=== PATIENT | female | born 1955 | race Caucasian/White ===

== ENCOUNTER → 2025-01-24 09:34 | Outpatient (BNVA) | payer MEDICARE, OTHER, SELFPAY | PROVIDERS: PCP Family Medicine; Visit Provider Family Medicine | DX: Z13.6 Encounter for screening for cardiovascular disorders (principal); E03.9 Hypothyroidism, unspecified | CPT/HCPCS: 80053; 80061; 84439; 84443; 85025 ==

== ENCOUNTER 2025-01-30 15:33 | Emergency (ER) | payer MEDICARE, OTHER, SELFPAY ==
[2025-01-30 15:39] VITALS: BP 152/92; PULSE 102; RESP 17; TEMP 36.8; O2SAT 93; BMI 31.8
[2025-01-30] MEDS: tetanus-dipt-pertussis 0.5 mL SDV IM (16:08)
--- NOTE | 2025-01-30 16:40 | W.ED.WOUNDLC ---
HPI - Wound/Laceration General: Chief Complaint: Wound/Laceration Stated Complaint: left ring finger cut Time Seen by Provider: 01/30/25 15:48 Source: patient Mode of arrival: ambulatory Limitations: no limitations History of Present Illness: 69yo female presents with laceration of her left ring finger that occurred when she was in the kitchen using a knife. Patient reports that she has fibromyalgia and she has had increased shaking today. Patient is right-hand dominant. Denies any other injury or concern at this time. Associated symptoms: Denies chills, fever(s) or vomiting Related Data Home Medications ?Medication ?Instructions ?Recorded ?Confirmed duloxetine 60 mg capsule,delayed mg PO QDAY 01/24/25 01/24/25 release gabapentin 600 mg tablet mg PO BID 01/24/25 01/24/25 meloxicam 15 mg tablet mg PO QDAY 01/24/25 01/24/25 methocarbamol 750 mg tablet mg PO TID PRN 01/24/25 01/24/25 tramadol 50 mg tablet mg PO Q6H PRN 01/24/25 01/24/25 Previous Rx's ?Medication ?Instructions ?Recorded albuterol sulfate 90 mcg/actuation 2 puff inhalation Q6H PRN wheezing 12/26/24 aerosol inhaler (Ventolin HFA) #8.5 grams budesonide-formoterol HFA 80 2 puff inhalation BID #10.2 grams 01/24/25 mcg-4.5 mcg/actuation aerosol inhaler (Symbicort) lisinopril 5 mg tablet 5 mg PO QDAY #90 tabs 01/24/25 omeprazole 20 mg capsule,delayed 40 mg (2 x 20 mg) PO DAILY #120 01/24/25 release caps prednisone 20 mg tablet 40 mg (2 x 20 mg) PO DAILY 5 days 01/24/25 #10 tabs levothyroxine 100 mcg tablet 100 mcg PO QDAY #90 tabs 01/29/25 Allergies Allergy/AdvReac Type Severity Reaction Status Date / Time Sulfa (Sulfonamide Allergy ADR-Headach Verified 01/24/25 08:52 Antibiotics) e Review of Systems Const: Denies: fever(s), chills or body aches GI: Denies: vomiting Musc: Reports: other (Laceration left ring finger) Skin/Breast: Reports: other PFSH ED PFSH: Medical History (Updated 01/30/25 @ 16:42 by DERICK Pedersen) Hx of malignant neoplasm of colon Retained urethral stent Hernia Hypothyroidism Fibromyalgia Hypertension Asthma Surgical History (Updated 01/24/25 @ 09:12 by David Flores MD) H/O tubal ligation History of surgery on arm H/O colectomy Social History Smoking and tobacco/nicotine status: former use of tobacco/nicotine Alcohol intake: current Alcohol intake frequency: holidays/special occasions only Substance/Drug Use: never Physical Exam Const: COMMON NORMALS: no acute distress, patient oriented x3, healthy appearing and alert GENERAL APPEARANCE: cooperative ORIENTATION/CONSCIOUSNESS: Yes awake OTHER: Patient is ambulatory to vertical flow unassisted. She is sitting upright in the recliner in no acute distress. She is able to give history with no difficulty. She is interactive with exam appropriately. No family is at bedside HENMT: COMMON NORMALS: normocephalic and atraumatic HEAD & SCALP: normocephalic and atraumatic Neck/C-Spine: COMMON NORMALS: full ROM Chest: CHEST: Yes Symmetrical chest wall rise Resp: COMMON NORMALS: normal respiratory effort EFFORT & INSPECTION: Yes able to speak in complete sentences Extremity: RIGHT UPPER EXTREMITY: Yes hand & digits Right hand and digits: Yes inspection (Laceration left fourth digit. Bleeding controlled with pressure) and Yes ROM exam (Full range of motion with no difficulty) Neuro: COMMON NORMALS: patient oriented x3 SENSORIUM/ORIENTATION: Yes alert Psych: COMMON NORMALS: cooperative Procedures Laceration Laceration 1: Site: hand (left ring finger) Side (If applicable): left Size (cm): 1.5 Description: linear Depth: simple, single layer Local Anesthetic: lidocaine 1% Amount of anesthesia used (mL): 3 Pre-repair: wound explored and irrigated extensively Skin layer closed with: nylon Size (cm): 4-0 Number of sutures: 3 Technique: simple, interrupted Course Vital Signs: Vital signs: Vital Signs Temperature 98.2 F 01/30/25 15:39 Pulse Rate 102 H 01/30/25 15:39 Respiratory Rate 17 01/30/25 15:39 Blood Pressure 152/92 01/30/25 15:39 Pulse Oximetry 93 01/30/25 15:39 Oxygen Delivery Me thod Room Air 01/30/25 15:39 MDM - Wound/Laceration Medical Decision Making 69yo female presents with laceration of her left ring finger that occurred when she was in the kitchen using a knife. Patient is right-hand dominant. She denies any other injury or concern at this time. Patient is nontoxic in appearance. Vital signs are stable. Wound was copiously irrigated with normal saline. Laceration repaired with sutures. Discussed wound care. Advised follow-up with primary care/urgent care in 7 days for suture removal, sooner if needed. Return precautions provided. Patient states understanding and has no further questions or concerns at this time. No radiology studies performed this visit Discharge Plan Discharge Patient Disposition: Home Clinical Impression: Laceration of left ring finger Qualifiers: Encounter type: initial encounter Damage to nail status: without damage Foreign body presence: without foreign body Qualified Code(s): S61.215A - Laceration without foreign body of left ring finger without damage to nail, initial encounter Condition: Stable Prescriptions: No Action omeprazole 20 mg capsule,delayed release(DR/EC) 40 mg PO DAILY Qty: 120 1RF Rx Instructions: can take one or two capsules lisinopril 5 mg tablet 5 mg PO QDAY Qty: 90 1RF prednisone 20 mg tablet 40 mg PO DAILY 5 Days Qty: 10 0RF budesonide-formoterol [Symbicort] 80-4.5 mcg/actuation HFA aerosol inhaler 2 puff inhalation BID Qty: 10.2 1RF albuterol sulfate [Ventolin HFA] 90 mcg/actuation HFA aerosol inhaler 2 puff inhalation Q6H PRN (Reason: wheezing) Qty: 8.5 2RF duloxetine 60 mg capsule,delayed release(DR/EC) PO QDAY gabapentin 600 mg tablet PO BID meloxicam 15 mg tablet PO QDAY methocarbamol 750 mg tablet PO TID PRN tramadol 50 mg tablet PO Q6H PRN levothyroxine 100 mcg tablet 100 mcg PO QDAY Qty: 90 0RF Discharge Orders: Discharge ED (Routine); Ordered 01/30/25 Ordered By: Nacho Valdes Referrals: David Flores MD [Primary Care Provider, Family Practice] Discharge Diet: Usual diet Discharge Activity: Resume usual activity Patient Instructions: Finger Laceration (ED) Activity Restrictions/Additional Instructions: The laceration of the finger was repaired with sutures. Please do not submerge your finger under any water until the wound has healed Gently wash twice daily with soap and water. You may apply antibiotic ointment. The sutures will need to be removed in 7 to 10 days. You may follow-up with primary care or urgent care for suture removal Return to the emergency department if any further injury, rapid worsening symptoms, and as needed Print Language: Grenadian Coding Level of Care Code ED Cuff Turner Machine Operator for Sandra Gifford
== END 2025-01-30 17:16 | disposition home or self-care (01) ==
PROVIDERS: Emergency Provider Nurse Practitioner; PCP Family Medicine
DX: S61.215A Laceration without foreign body of left ring finger without damage to nail, initial encounter (principal); Z87.891 Personal history of nicotine dependence; I10 Essential (primary) hypertension; Z85.038 Personal history of other malignant neoplasm of large intestine; W26.0XXA Contact with knife, initial encounter
CPT/HCPCS: 12001; 90471; 90715; 99283; 99291; A6446

== ENCOUNTER 2025-03-10 13:48 | Outpatient (CLI) | payer MEDICARE, OTHER, SELFPAY ==
--- NOTE | 2025-03-10 13:20 | MM_ITS ---
WS: [id number] VIEWS: MLO and CC views both breasts. 3D digital tomosynthesis is also included in this exam. No prior studies. Findings: There are scattered areas of fibroglandular density. No sign of suspicious mass, tumor calcification or architectural distortion. MM/MM scr BI tomosynthesis [id number] Impression: BI-RADS: 2 - Benign. FOLLOW-UP: 1 Year Follow-up This mammogram was also analyzed by the Computer Aided Detection System [employer].
== END 2025-03-10 13:49 | disposition home or self-care (01) ==
LOC: RAD 13:49
PROVIDERS: PCP Family Medicine; Visit Provider Family Medicine
DX: Z12.31 Encounter for screening mammogram for malignant neoplasm of breast (principal); Z12.39 Encounter for other screening for malignant neoplasm of breast; R92.323 Mammographic fibroglandular density, bilateral breasts
CPT/HCPCS: 77063; 77067

== ENCOUNTER → 2025-05-28 09:21 | Outpatient (BNVA) | payer MEDICARE, OTHER, SELFPAY | PROVIDERS: PCP Family Medicine; Visit Provider Family Medicine | DX: I10 Essential (primary) hypertension (principal); E03.9 Hypothyroidism, unspecified | CPT/HCPCS: 80053; 80061; 82746; 83550; 84439; 84443; 85025 ==